=== PATIENT | male | born 1965 | race Two or more races ===

== ENCOUNTER 2024-07-15 17:06 | Inpatient (IN) | payer BC ==
[2024-07-15 17:57] VITALS: BMI 20.9
[2024-07-15] MEDS ORDERED: NICOTINE POLACRILEX 2 MG GUM BUC PRN (18:28)
[2024-07-15] MEDS ORDERED: IBUPROFEN 600 MG TABLET (FP) PO PRN (18:28)
[2024-07-15] MEDS ORDERED: NICOTINE POLACRILEX 2 MG LOZENGE BC PRN (18:28)
[2024-07-15] MEDS ORDERED: BENZOCAINE/MENTHOL (CHLORASEPTIC ) LOZENGE MM PRN (18:28)
[2024-07-15] MEDS ORDERED: hydrOXYzine PAMOATE 25 MG CAPSULE (FP) PO PRN (18:28)
[2024-07-15] MEDS ORDERED: POLYETHYLENE GLYCOL (HEALTHYLAX) 3350 17 GM PACKET PO PRN (18:28)
[2024-07-15] MEDS ORDERED: METHOCARBAMOL 500 MG TABLET PO PRN (18:28)
[2024-07-15] MEDS ORDERED: DICYCLOMINE HCL 10 MG CAPSULE PO PRN (18:28)
[2024-07-15] MEDS ORDERED: guaiFENesin 600 MG TABLET.ER (FP) PO PRN (18:28)
[2024-07-15] MEDS ORDERED: IBUPROFEN 400 MG TABLET (FP) PO PRN (18:28)
[2024-07-15] MEDS ORDERED: P-EPHED 60MG/TRIPROLIDI 2.5MG TABLET PO PRN (18:28)
[2024-07-15] MEDS ORDERED: MAGNESIUM HYDROX 2400MG/30ML ORAL SUSPENSION 30 ML CUP PO PRN (18:28)
[2024-07-15] MEDS ORDERED: ONDANSETRON *ODT* 4 MG TABLET SL PRN (18:28)
[2024-07-15] MEDS ORDERED: ACETAMINOPHEN 325 MG TABLET (FP) PO PRN (18:28)
[2024-07-15] MEDS ORDERED: NALOXONE (NARCAN) HCL 4 MG/0.1 ML SPRAY NS PRN (18:28)
[2024-07-15] MEDS ORDERED: LOPERAMIDE HCL 2 MG CAPSULE PO PRN (18:28)
[2024-07-15] MEDS ORDERED: BENZONATATE 200 MG CAPSULE PO PRN (18:28)
[2024-07-15] MEDS ORDERED: MAG HYDROX/AL HYDROX/SIMETH 30 ML UNIT-DOSE CUP PO PRN (18:28)
[2024-07-15] MEDS ORDERED: BISMUTH SUBSALICYLATE 524 MG/30 ML PO PRN (18:28)
[2024-07-15] MEDS ORDERED: cloNIDine HCL 0.1 MG TABLET PO PRN (18:30)
[2024-07-15] MEDS ORDERED: methaDONE HCL 10 MG TABLET (FOR DETOX USE ONLY) PO PRN (21:00)
[2024-07-15] MEDS: SULFAMETHOXAZOLE/TRIMETHOPRIM 800MG/160MG D.S. TABLET PO SCH (22:20)
[2024-07-15] MEDS: diazePAM 5 MG TABLET PO PRN (22:20)
[2024-07-15] MEDS: MELATONIN 5 MG TABLETS PO SCH (22:21)
[2024-07-15] MEDS: THIAMINE 100 MG TABLET PO SCH (22:21)
[2024-07-16] MEDS: diazePAM 5 MG TABLET PO SCH (05:50)
[2024-07-16] MEDS: PRENATAL VITAMINS W/ FOLIC ACID TABLET (FP) PO SCH (10:43)
[2024-07-16] MEDS: methaDONE HCL 10 MG TABLET (FOR DETOX USE ONLY) PO ONE ×2 (10:43→12:38)
[2024-07-16 10:53] LABS: HEMATOCRIT 41.8 % (40.1-51.0); HEMOGLOBIN 13.6 g/dL (13.7-17.5); MCHC 32.5 g/dl (32.3-36.5); MEAN CELL VOLUME 91.9 fl (79.0-92.2); MEAN PLT VOLUME 9.6 fl (9.4-12.4); PLATELET COUNT # 310 x10^3/uL (163-337); RDW 13.4 % (12.2-16.1)
[2024-07-16 11:09] LABS: POTASSIUM 4.4 mmol/L (3.5-5.1)
[2024-07-16 11:15] LABS: CALCIUM 9.2 mg/dL (8.5-10.1)
[2024-07-16 11:16] LABS: BLOOD UREA NITROGEN 11.6 mg/dL (7-18)
[2024-07-16 11:19] LABS: CREATININE 0.8 mg/dL (0.55-1.3)
[2024-07-16 11:20] LABS: BILIRUBIN,TOTAL 0.3 mg/dL (0.2-1); TOT PROT 6.7 g/dl (6.4-8.2)
[2024-07-17] MEDS: diazePAM 5 MG TABLET PO SCH (05:24)
[2024-07-17 05:57] VITALS: BP 132/75; PULSE 78; RESP 18; TEMP 97.6
[2024-07-18] MEDS ORDERED: diazePAM 5 MG TABLET PO SCH (06:00)
[2024-07-18] MEDS ORDERED: methaDONE HCL 10 MG TABLET (FOR DETOX USE ONLY) PO ONE (10:00)
[2024-07-19] MEDS ORDERED: diazePAM 5 MG TABLET PO ONE (06:00)
[2024-07-20] MEDS ORDERED: methaDONE HCL 10 MG TABLET (FOR DETOX USE ONLY) PO ONE (10:00)
== END 2024-07-17 07:56 | disposition left against medical advice (07) | DRG 770 ==
LOC: YASAS 17:06 → Y3N 20:13
PROVIDERS: ADMIT Allergy & Immunology; ATTEND Allergy & Immunology
PROC: HZ2ZZZZ Detoxification Services for Substance Abuse Treatment (ICD-10-PCS; principal; 2024-07-15)
DX: F11.23 Opioid dependence with withdrawal (principal); F10.230 Alcohol dependence with withdrawal, uncomplicated; F14.20 Cocaine dependence, uncomplicated; F13.20 Sedative, hypnotic or anxiolytic dependence, uncomplicated; F17.210 Nicotine dependence, cigarettes, uncomplicated
CPT/HCPCS: 36415; 80053; 80305; 80307; 85027; 86780; 93005; 93010